=== PATIENT | male | born 1980 | race African-American/Black ===

== ENCOUNTER 2021-10-11 14:53 | Emergency (ER) | payer OTHER, SELFPAY ==
[2021-10-11 15:46] VITALS: BP 158/91; PULSE 102; RESP 16; TEMP 37.7; O2SAT 99
--- NOTE | 2021-10-11 16:52 | ED.GENADULT ---
HPI - General Adult General Chief complaint: Upper Respiratory Infection Stated complaint: sore throat Source: patient Mode of arrival: ambulatory Limitations: no limitations History of Present Illness HPI narrative: Patient presents for evaluation of sore throat for the last 2 days. He states he developed a fever and some chills yesterday. No nausea, vomiting, diarrhea, shortness of breath. He did develop a mild nonproductive cough today but states it is not overly bothersome. He has been using throat lozenges and throat sprays to assist with his symptoms. No personal history of Covid. He has received his Covid vaccinations. No additional complaints or concerns. Related Data Home Medications Medication Instructions Recorded Confirmed amlodipine 10 mg PO DAILY 10/11/21 10/11/21 losartan 25 mg PO DAILY 10/11/21 10/11/21 Allergies Allergy/AdvReac Type Severity Reaction Status Date / Time No Known Allergies Allergy Verified 10/11/21 15:43 Review of Systems Review of Systems: CONSTITUTIONAL: Reports fever, chills, sweats EYES: Denies visual changes, redness, or discharge. ENT: Reports sore throat denies rhinorrhea, congestion, or otalgia. CARDIOVASCULAR: Denies chest pain, palpitations, or edema. RESPIRATORY: Reports mild nonproductive cough. Denies dyspnea. GASTROINTESTINAL: Denies abdominal pain, nausea, vomiting, or diarrhea. GENITOURINARY: Denies dysuria or hematuria. SKIN: Denies rash or itching. MUSCULOSKELETAL: Denies back pain, joint pain, or myalgia. NEUROLOGIC: Denies headache, numbness, dizziness, or weakness. PSYCHIATRIC: Denies anxiety or depression. [facility] Past Medical History Medical History (Updated 10/11/21 @ 17:01 by MARISOL Mathews, RASHAUN) No pertinent past medical history Surgical History Surgical History No pertinent past surgical history Family History Family History Mother Diabetes mellitus Social History Social History Smoking status: Never smoker Alcohol intake: never Substance use: never Additional living arrangements comments: Lives with girlfriend Gender identity (if verbalized by the patient): Male Sexual Orientation (if Verbalized by the Patient): Straight or Heterosexual Spiritual care concerns: No Exam Narrative: GENERAL: Well-appearing, well-nourished, and in no acute distress. HEAD: Normocephalic, atraumatic. EYES: PERRLA and EOMI. ENT: Nares clear, no rhinorrhea or epistaxis. Mucous membranes moist. Posterior pharyngeal erythema without exudate. Uvula is midline. Bilateral TMs pearly hill nonbulging NECK: Supple. No adenopathy or masses. No carotid bruits or JVD CHEST: Clear to auscultation. No respiratory distress. No wheezes rales or rhonchi HEART: Regular rate and rhythm. No murmur heard. Normal peripheral pulses. ABDOMEN: Soft, nontender, nondistended, normal active bowel sounds. EXTREMITIES: Normal range of motion. No edema. SKIN: Warm, dry, no rash. NEURO: No focal deficits. Alert and oriented x3. PSYCH: Normal mood and affect. Course Course Emergency Course: This is a 40-year-old male who presented with complaints of sore throat. His rapid Covid was positive. He was mildly tachycardic and blood pressure was elevated. He is in no apparent distress. He states his cough is mild and I do not appreciate any adventitious lung sounds on exam. He does not appear to need imaging. He should increase hydration. He will quarantine in accordance with CDC recommendations. He should follow up outpatient for further evaluation and treatment and return for worsening symptoms. Pt in agreement with plan of care. Level of Care: Express Care Visit Vital Signs Vital signs: Vital Signs Temperature 37.7 C H 10/11/21 15:46 Pulse Rate 102 H 10/11/21 15:46 Respirat
== END 2021-10-11 17:11 | disposition home or self-care (01) ==
PROVIDERS: Emergency Provider Nurse Practitioner
DX: U07.1 COVID-19 (principal)
CPT/HCPCS: 87081; 87426; 87880; 99213; C9803; G0463